=== PATIENT | female | born 1995 | race Caucasian/White ===

== ENCOUNTER 2020-02-18 17:13 | Inpatient (IN) ==
[2020-02-19] MEDS ORDERED: ACETAMINOPHEN 500 MG TABLET PO PRN (00:12)
[2020-02-19] MEDS ORDERED: ONDANSETRON 4 MG/2 ML VIAL IV PRN ×2 (06:00→15:56)
[2020-02-19] MEDS ORDERED: MEPERIDINE 50 MG/1 ML VIAL IV PRN (06:00)
[2020-02-19] MEDS ORDERED: OXYTOCIN/LR 20 UNIT/1,000 ML BAG IV SCH (06:00)
[2020-02-19] MEDS ORDERED: BUTORPHANOL 2 MG/ML VIAL IV PRN (06:00)
[2020-02-19] MEDS: LACTATED RINGERS 1,000 ML IV SCH ×2 (06:13→12:52)
[2020-02-19 06:36] LABS: Basophils % 0.2 % (0.0-0.8); Eosinophils # 0.1 10*3/uL (0.0-0.87); Eosinophils % 0.7 % (0.00-10.9); Hematocrit 30.5 VOL% (35.7-47.0); Hemoglobin 9.7 GM/DL (12.0-16.0); Immature Granulocytes % 0.5 %; Immature Granulocytes Absolute 0.05 #; Lymphocytes # 2.1 10*3/uL (1.4-4.0); Lymphocytes % 22.9 % (21.3-54.2); Mean Corpuscular HGB Conc 31.8 GM/DL (32-36); Mean Corpuscular Volume 84.3 FL (87-102); Mean Platelet Volume 9.8 FL (9.6-12.0); Monocytes % 6.6 % (1.7-12.7); Neutrophils % 69.1 % (38.7-73.9); Platelet Count 243 T/CUMM (130-400); Red Blood Count 3.62 MC/CUMM (3.8-5.5); Red Cell Distribution Width 14.1 % (9.3-17.3); White Blood Count 9.1 T/CUMM (4-12)
[2020-02-19] MEDS ORDERED: ePHEDrine 50 MG/ML VIAL IV PRN (06:49)
[2020-02-19] MEDS ORDERED: FAMOTIDINE 20 MG/2 ML VIAL IV ONE ×2 (06:49→12:45)
[2020-02-19] MEDS ORDERED: CITRIC ACID/SODIUM CITRATE 30 ML UDCUP PO ONE (06:49)
[2020-02-19] MEDS ORDERED: LACTATED RINGERS 1,000 ML IV ONE (06:49)
[2020-02-19] MEDS ORDERED: hydrOXYzine HCL 25 MG/1 ML VIAL IM PRN (06:51)
[2020-02-19] MEDS ORDERED: diphenhydrAMINE 50 MG/1 ML VIAL IV PRN ×2 (06:51)
[2020-02-19] MEDS ORDERED: NALOXONE 0.4 MG/ML VIAL IV PRN (06:51)
[2020-02-19] MEDS ORDERED: PROMETHAZINE 25 MG/1 ML VIAL IM ONE (06:51)
[2020-02-19] MEDS ORDERED: TRANEXAMIC ACID 1,000 MG/10 ML VIAL ONE (07:54)
[2020-02-19] MEDS ORDERED: miSOPROStoL 200 MCG TABLET ONE (07:54)
[2020-02-19] MEDS: fentaNYL 2 MCG/ROPIV 0.2% EPID 100 ML EPIDURAL SCH (09:09)
[2020-02-19] MEDS ORDERED: CARBOPROST TROMETHAMINE 250 MCG/ML AMP IM ONE (10:01)
[2020-02-19] MEDS ORDERED: LIDOCAINE 1% 50 ML VIAL ONE (10:01)
[2020-02-19] MEDS ORDERED: METHYLERGONOVINE 0.2 MG/1 ML AMP ONE (10:01)
[2020-02-19 11:18] LABS: Apearance,Urine CLEAR (Clear); Bacteria,Urine Occasional /HPF (Few); Bilirubin,Urine Negative (Negative); Blood, Urine Negative (Negative); Glucose,Urine (UA) Negative (Negative); Ketones,Urine Negative (Negative); Mucus,Urine Occasional /LPF (Occasional); Nitrite,Urine Negative (Negative); Protein,Urine Negative; Urine Color Straw (Yellow); Urine Specific Gravity 1.006 (1.001-1.035); Urine Urobilinogen < 2.0 EU/DL (0.2-1.0); WBC,Urine <1 /HPF (0-6)
[2020-02-19] MEDS ORDERED: ONDANSETRON 4 MG/2 ML VIAL IV ONE (12:00)
[2020-02-19] MEDS ORDERED: oxyCODONE/ACETAMINOPHEN 5-325 MG TABLET PO PRN ×2 (15:56)
[2020-02-19] MEDS ORDERED: LANOLIN 50% CREAM 0.3 OZ TUBE TOP PRN (15:56)
[2020-02-19] MEDS ORDERED: HYDROCORTISONE 2.5% RECTAL CREAM 30 GM TUBE TOP PRN (15:56)
[2020-02-19] MEDS ORDERED: DIPH/TET/ACEL PERT BOOSTER VACCINE 0.5 ML VIAL IM ONE (15:56)
[2020-02-19] MEDS ORDERED: IBUPROFEN 800 MG TABLET PO PRN (15:56)
[2020-02-19] MEDS ORDERED: BISACODYL 10 MG SUPP RECTAL PRN (15:56)
[2020-02-19] MEDS ORDERED: WITCH HAZEL PADS 100/JAR TOP PRN (15:56)
[2020-02-19] MEDS ORDERED: ACETAMINOPHEN 325 MG TABLET PO PRN (15:56)
[2020-02-19] MEDS ORDERED: BENZOCAINE 20%/MENTHOL 0.5% SPRAY 56 GM CAN TOP PRN (15:56)
[2020-02-19] MEDS ORDERED: MEASLES/MUMPS/RUBELLA VACCINE 0.5 ML VIAL SUBCUT ONE (15:56)
[2020-02-19] MEDS ORDERED: RHO(D) IMMUNE GLOBULIN 300 MCG SYRINGE IM ONE (15:56)
[2020-02-19] MEDS ORDERED: OXYTOCIN/LR 20 UNIT/1,000 ML BAG IV ONE (15:56)
[2020-02-19 15:58] LABS: Cord Arterial Blood HCO3 21.9 MMOL/L
[2020-02-19 16:01] LABS: Cord Venous Blood HCO3 22.2 MMOL/L; Cord Venous Blood PCO2 37.6 MMHG; Cord Venous Blood PO2 24.4
[2020-02-19] MEDS ORDERED: DOCUSATE SODIUM 100 MG CAPSULE PO SCH (21:00)
[2020-02-19] MEDS: IBUPROFEN 100 MG/5 ML UDCUP PO PRN (21:28)
[2020-02-20] MEDS: IBUPROFEN 100 MG/5 ML UDCUP PO PRN ×2 (03:05→09:45)
[2020-02-20 04:14] LABS: Basophils % 0.3 % (0.0-0.8); Eosinophils % 0.3 % (0.00-10.9); Hemoglobin 9.1 GM/DL (12.0-16.0); Immature Granulocytes % 0.6 %; Immature Granulocytes Absolute 0.08 #; Lymphocytes # 2.1 10*3/uL (1.4-4.0); Mean Corpuscular HGB Conc 32.5 GM/DL (32-36); Mean Corpuscular Volume 82.1 FL (87-102); Mean Platelet Volume 10.2 FL (9.6-12.0); Monocytes % 7.3 % (1.7-12.7); Neutrophils % 75.5 % (38.7-73.9); Platelet Count 254 T/CUMM (130-400); Red Blood Count 3.41 MC/CUMM (3.8-5.5); Red Cell Distribution Width 14.1 % (9.3-17.3); White Blood Count 13.1 T/CUMM (4-12)
[2020-02-20] MEDS: DOCUSATE SODIUM 100 MG/10 ML UDCUP PO SCH ×2 (09:15→19:51)
[2020-02-21 09:33] VITALS: BP 110/67
[2020-02-21] MEDS: DOCUSATE SODIUM 100 MG/10 ML UDCUP PO SCH (09:52)
== END 2020-02-21 11:53 | disposition home or self-care (01) | DRG 807 ==
LOC: N.LDOUT 17:13 → N.LD 17:14 → N.OB 02-19 22:26
PROVIDERS: ADMIT Specialist; ATTEND Specialist